=== PATIENT | female | born 1980 | race Caucasian/White ===

== ENCOUNTER 2020-12-17 09:22 | Emergency (ER) | payer BC, OTHER ==
[2020-12-17 10:00] LABS: Absolute Lymphocytes (CBC) 1.6 K/uL (0.7-4.9); Basophils % 0.7 % (0-1.3); Lymphocytes % 29.5 % (15.3-44.8); MPV 7.6 fL (7.6-11.3); RBC Red Blood Cell Count 4.27 M/uL (3.86-4.86)
[2020-12-17 10:04] LABS: Protime INR 0.97
[2020-12-17] MEDS ORDERED: NA CHLORIDE 0.9% 1,000 ML ONE ×2 (10:05→13:34)
--- NOTE | 2020-12-17 10:26 | RAD REPORT ---
EXAM DESCRIPTION: [place] Single View12/17/2020 10:14 am CLINICAL HISTORY: cough COMPARISON: none FINDINGS: Elevation left hemidiaphragm. The lungs appear clear of acute infiltrate. The heart is normal size
--- NOTE | 2020-12-17 10:31 | RAD REPORT ---
EXAM DESCRIPTION: CT - Chest For Pe Angio - 12/17/2020 10:03 am CLINICAL HISTORY: Chest pain COMPARISON: None. TECHNIQUE: Dynamically enhanced axial 3 mm thick images of the chest were obtained during administra tion of <100> mL Isovue 370 IV contrast. Coronal and oblique reconstruction images were generated and reviewed. Exam utilizes a protocol for optimal evaluation of pulmonary arterial tree. Maximum intensity projections 3D imaging was utilized All CT scans are performed using dose optimization technique as appropriate and may include automated exposure control or mA/KV adjustment according to patient size. FINDINGS: A pulmonary embolus is not seen. A thoracic aortic aneurysm is not noted. A pleural effusion is not seen. A pericardial effusion is not seen. Minimal ground-glass opacities right lower lobe and lingula. IMPRESSION: Negative for a pulmonary embolism. Minimal ground-glass opacities right lower lobe and lingula. This is nonspecific. Potentially this co uld indicate a minimal Covid pneumonia
[2020-12-17 10:37] LABS: ALT/SGPT 66 U/L (12-78); Albumin 3.6 g/dL (3.4-5.0); Alkaline Phosphatase 72 U/L (45-117); BUN Blood Urea Nitrogen 6 mg/dL (7-18); Bicarbonate 21 mmol/L (21-32); Bilirubin Direct < 0.1 mg/dL (0-0.2); Bilirubin Total 0.3 mg/dL (0.2-1.0); Ferritin 22.8 ng/mL (8-388); Glucose Level 133 mg/dL (74-106); Protein, Total 7.4 g/dL (6.4-8.2); Sodium Level 138 mmol/L (136-145); Troponin (Emerg Dept Use Only) < 0.02 ng/mL (0.0-0.045)
[2020-12-17 10:38] LABS: AST/SGOT 38 U/L (15-37); Potassium 3.9 mmol/L (3.5-5.1)
--- NOTE | 2020-12-17 11:58 | EDPHYS ---
Physician Documentation [facility] Name: Karina Donald Age: 40 yrs Sex: Female : 1980 Arrival Date: 12/17/2020 Time: 09:23 Bed 11 Private MD: ED Physician Gregory Reagan HPI: 12/17 09:39 This 40 yrs old Female presents to ER via Ambulatory with complaints of rn Shortness Of Breath, Dizziness. 09:39 The patient has shortness of breath at rest, with light activity. Onset: The rn symptoms/episode began/occurred 1 week(s) ago. Duration: The symptoms are continuous. The patient's shortness of breath is aggravated by exertion, light activity, is alleviated by nothing. Associated signs and symptoms: Pertinent positives: chest pain, non-productive cough, fever, Pertinent negatives: hemoptysis, loss of consciousness. Severity of symptoms: At their worst the symptoms were moderate in the emergency department the symptoms are unchanged. The patient has not experienced similar symptoms in the past. The patient has not recently seen a physician. Patient reports Covid positive this last week, cough and shortness of breath has worsened, worse this morning, + active smoker. Denies hemoptysis.. Historical: - Allergies: 09:34 No Known Allergies; ss - Home Meds: 09:34 None [Active]; ss - PMHx: 09:34 None; ss - PSHx: 09:34 None; ss - Immunization history:: Client reports receiving the 1st dose of the Covid vaccine. - Social history:: Smoking status: Patient reports the use of cigarette tobacco products, smokes one-half pack cigarettes per day. - Family history:: not pertinent. - Hospitalizations: : No recent hospitalization is reported. ROS: 09:39 Constitutional: Negative for fever, chills, and weight loss, Eyes: Negative for injury, rn pain, redness, and discharge, ENT: Negative for injury, pain, and discharge, Neck: Negative for injury, pain, and swelling, Cardiovascular: Negative for palpitations, and edema, Respiratory: Negative for wheezing Abdomen/GI: Negative for abdominal pain, and constipation, Back: Negative for injury and pain, MS/Extremity: Negative for injury and deformity, Skin: Negative for injury, rash, and discoloration, Neuro: Negative for headache, numbness, tingling, and seizure. 09:39 All other systems are negative. Exam: 09:39 Constitutional: This is a well developed, well nourished patient who is awake, alert, rn moderate tachypnea Head/Face: Normocephalic, atraumatic. Eyes: Pupils equal round and reactive to light, extra-ocular motions intact. Lids and lashes normal. Conjunctiva and sclera are non-icteric and not injected. Cornea within normal limits. Periorbital areas with no swelling, redness, or edema. ENT: Dry mucous membranes, no stridor Neck: Trachea midline, no masses palpated, and no cervical lymphadenopathy. Supple, full range of motion without nuchal rigidity, or vertebral point tenderness. No Meningismus. Cardiovascular: Tachycardic, regular. No pulse deficits Respiratory: Moderate tachypnea, no retractions Abdomen/GI: Soft, non-tender Skin: Warm, dry MS/ Extremity: Pulses equal, no cyanosis. Neuro: Awake and alert, GCS 15 11:52 ECG was reviewed by the Attending Physician. rn Vital Signs: 09:28 BP 119 / 94; Pulse 121; Resp 25; Temp 97.9(TE); Pulse Ox 100% on R/A; Height 5 ft. 6 ss in. (167.64 cm); Pain 0/10; 09:37 Pulse 108; Pulse Ox 100% on R/A; ss 11:40 BP 99 / 61; Pulse 94; Resp 22; Pulse Ox 97% on R/A; vg1 13:08 BP 110 / 76; Pulse 95; Resp 20; Pulse Ox 100% on R/A; vg1 15:00 BP 124 / 78; Pulse 90; Resp 20; Pulse Ox 98% on R/A; vg1 MDM: 10:49 Differential diagnosis: pneumonia, Pneumothorax pulmonary edema, Pulmonary Embolism rn reactive airway disease, Sepsis COVID-19 positive test (U07.1, COVID-19) with Acute Pneumonia (J12.89, Other viral pneumonia) (If respiratory failure or sepsis present, add as separate assessment). Data reviewed: vital signs, nurses notes, lab test result(s), EKG, radiologic studies, CT scan, plain films, and as a result, I will discharge patient. Data interpreted: monitor worker: rate is 108 beats/min, rhythm is regular, sinus tachycardia, with no ectopy, Interpretation: tachycardia, Pulse oximetry: on room air is 99 %. Interpretation: normal. Test interpretation: by ED physician or midlevel provider: ECG, plain radiologic studies, Chest x-ray negative for acute infiltrate or pneumothorax. Counseling: I had a detailed discussion with the patient and/or guardian regarding: the historical points, exam findings, and any diagnostic results supporting the discharge/admit diagnosis, lab results, radiology results, the need for outpatient follow up, to return to the emergency department if symptoms worsen or persist or if there are any questions or concerns that arise at home. Response to treatment: the patient's symptoms have mildly improved after treatment, and as a result, I will discharge patient. Special discussion: I discussed with the patient/guardian in detail that at this point there is no indication for admission to the hospital. It is understood, however, that if the symptoms persist or worsen the patient needs to return immediately for re-evaluation. ED course: Patient improved clinically, tachypnea has improved. CT negative for PE and shows mild Covid pneumonia. Patient offered Regeneron given high risk of decompensation and active smoking history. Patient accepts and wishes to get Regeneron infusion, orders placed.. 11:31 Patient medically screened. rn 11:58 Counseling: I had a detailed discussion with the patient and/or guardian regarding: rn smoking cessation. 12/17 09:38 Order name: BMP; Complete Time: 10:41 12/17 09:38 Order name: Blood Culture Adult (2) rn 12/17 09:38 Order name: C-Reactive Protein; Complete Time: 10:41 12/17 09:38 Order name: CBC with Diff; Complete Time: 10:36 12/17 09:38 Order name: D-Dimer; Complete Time: 10:36 12/17 09:38 Order name: Ferritin; Complete Time: 10:41 12/17 09:38 Order name: LFT's; Complete Time: 10:41 12/17 09:38 Order name: Lactate rn 12/17 09:38 Order name: PT-INR; Complete Time: 10:36 12/17 09:38 Order name: Procalcitonin; Complete Time: 10:41 12/17 09:38 Order name: Ptt, Activated; Complete Time: 10:36 12/17 09:38 Order name: Troponin (emerg Dept Use Only); Complete Time: 10:41 rn 12/17 09:38 Order name: CXR XRAY; Complete Time: 10:36 rn 12/17 10:07 Order name: CREATININE WHOLE BLOOD; Complete Time: 10:36 EDMS 12/17 09:38 Order name: EKG; Complete Time: 09:39 rn 12/17 09:38 Order name: Cardiac monitoring; Complete Time: 11:50 rn 12/17 09:38 Order name: Droplet/Contact Precautions; Complete Time: 11:35 rn 12/17 09:38 Order name: EKG - Nurse/Tech; Complete Time: 11:50 rn 12/17 09:38 Order name: IV Start; Complete Time: 09:47 rn 12/17 09:38 Order name: Labs collected and sent; Complete Time: 11:35 rn 12/17 09:38 Order name: O2 Per Protocol; Complete Time: 11:35 rn 12/17 09:38 Order name: O2 Sat Monitoring; Complete Time: 11:35 rn 12/17 09:39 Order name: CT Chest For PE Angio; Complete Time: 10:36 rn EC:52 Rate is 82 beats/min. Rhythm is regular. QRS [place] is Normal. VT interval is normal. QRS rn interval is normal. QT interval is normal. No Q waves. T waves are Normal. No ST changes noted. Clinical impression: NSR w/ Non-specific ST/T Changes. Interpreted by me. Reviewed by me. Administered Medications: 09:47 Drug: NS 0.9% 1000 ml Route: IV; Rate: 1000 ml; Site: left antecubital; ss 13:47 Follow up: IV Status: Completed infusion; IV Intake: 1000ml vg1 12:19 Drug: REGEN-COV Dose Pack 120 mg/mL-120 mg/mL (EUA) 600 mg Route: IV; Rate: calculated vg1 rate; Site: left antecubital; 13:21 Follow up: IV Status: Completed infusion; IV Intake: 100ml vg1 13:21 Drug: NS 0.9% 1000 ml Route: IV; Rate: 1 bolus; Site: left antecubital; vg1 15:10 Follow up: IV Status: Completed infusion; IV Intake: 1000ml vg1 Disposition Summary: 12/17/20 11:58 Discharge Ordered Location: Home rn Problem: new rn Symptoms: have improved rn Condition: Stable rn Diagnosis - Pneumonia due to SARS-associated coronavirus rn - Dehydration rn Followup: rn - With: Private Physician - When: As needed - Reason: Recheck today's complaints, Re-evaluation by your physician Discharge Instructions: - Discharge Summary Sheet rn - Dehydration, Adult rn - COVID-19 rn - COVID-19 Frequently Asked Questions rn Forms: - Medication Reconciliation Form rn - Thank You Letter rn - Antibiotic last turner - Prescription Opioid Use rn Signatures: Dispatcher [employer] EDGregory Edwards MD MD rn Smirch, Shelby, RN RN Jennifer Briscoe, RN RN vg1
--- NOTE | 2020-12-17 11:58 | ER ---
Nurse's Notes [facility] Name: Karina Donald Age: 40 yrs Sex: Female : 1980 Arrival Date: 12/17/2020 Time: 09:23 Bed 11 Private MD: Diagnosis: Pneumonia due to SARS-associated coronavirus;Dehydration Presentation: 12/17 09:28 Chief complaint: Patient states: Diagnosed with COVID recently. Symptoms began 10 days ss ago. Pt reports that her shortness of breath and cough are getting worse. Denies pain. Coronavirus screen: Client presents with at least one sign or symptom that may indicate coronavirus-19. Standard/surgical mask placed on the client. Provider contacted for isolation considerations. Ebola Screen: Patient denies exposure to infectious person. Patient denies travel to an Ebola-affected area in the 21 days before illness onset. Initial Sepsis Screen: Does the patient meet any 2 criteria? RR > 20 per min. HR > 90 bpm. Does the patient have a suspected source of infection? No. Patient's initial sepsis screen is negative. Risk Assessment: Do you want to hurt yourself or someone else? Patient reports no desire to harm self or others. Onset of symptoms was December 07, 2020. 09:28 Method Of Arrival: Ambulatory ss 09:28 Acuity: SPEEDY 2 ss Historical: - Allergies: 09:34 No Known Allergies; ss - Home Meds: 09:34 None [Active]; ss - PMHx: 09:34 None; ss - PSHx: 09:34 None; ss - Immunization history:: Client reports receiving the 1st dose of the Covid vaccine. - Social history:: Smoking status: Patient reports the use of cigarette tobacco products, smokes one-half pack cigarettes per day. - Family history:: not pertinent. - Hospitalizations: : No recent hospitalization is reported. Screenin:57 Abuse screen: Denies threats or abuse. Nutritional screening: No deficits noted. vg1 Tuberculosis screening: No symptoms or risk factors identified. Fall Risk No fall in past 12 months (0 pts). No secondary diagnosis (0 pts). IV access (20 points). Ambulatory Aid- None/Bed Rest/Nurse Assist (0 pts). Gait- Normal/Bed Rest/Wheelchair (0 pts) Mental Status- Oriented to own ability (0 pts). Total Armijo Fall Scale indicates No Risk (0-24 pts). Assessment: 09:48 Reassessment: Pt to XRAY and CT now VIA wheelchair [facility]. ss 11:50 General: Appears in no apparent distress. comfortable, Behavior is calm, cooperative. vg1 Pain: Denies pain. Neuro: Level of Consciousness is awake, alert, obeys commands, Oriented to person, place, time, situation. Cardiovascular: Patient's skin is warm and dry. Rhythm is sinus rhythm. Respiratory: Airway is patent Respiratory effort is even, unlabored. 11:50 Respiratory: Breath sounds are diminished. vg1 11:58 Reassessment: Pt up for d/c; currently waiting for administration of medication and vg1 completion. 13:08 Reassessment: Patient appears in no apparent distress at this time. No changes from vg1 previously documented assessment. Patient and/or family updated on plan of care and expected duration. Pain level reassessed. Patient is alert, oriented x 3, equal unlabored respirations, skin warm/dry/pink. Pt stated feeling 'dizziness that comes and goes'. Provider notified. 15:10 Reassessment: Patient appears in no apparent distress at this time. Patient and/or vg1 family updated on plan of care and expected duration. Pain level reassessed. Patient is alert, oriented x 3, equal unlabored respirations, skin warm/dry/pink. Patient states feeling better. Vital Signs: 09:28 BP 119 / 94; Pulse 121; Resp 25; Temp 97.9(TE); Pulse Ox 100% on R/A; Height 5 ft. 6 ss in. (167.64 cm); Pain 0/10; 09:37 Pulse 108; Pulse Ox 100% on R/A; ss 11:40 BP 99 / 61; Pulse 94; Resp 22; Pulse Ox 97% on R/A; vg1 13:08 BP 110 / 76; Pulse 95; Resp 20; Pulse Ox 100% on R/A; vg1 15:00 BP 124 / 78; Pulse 90; Resp 20; Pulse Ox 98% on R/A; vg1 ED Course: 09:23 Patient arrived in ED. ds1 09:34 Triage completed. ss 09:34 Gregory Reagan MD is Attending Physician. ss 09:34 Arm band placed on right wrist. ss 09:48 Inserted saline lock: 22 gauge in left antecubital area, using aseptic technique. Blood ss collected. Patient maintains SpO2 saturation greater than 95% on room air. 10:03 CT Chest For PE Angio In Process Unspecified. EDMS 10:14 CXR XRAY In Process Unspecified. EDMS 11:34 Jennifer Daniels, RN is Primary Nurse. vg1 11:58 Patient has correct armband on for positive identification. Bed in low position. Call vg1 light in reach. Side rails up X 1. 11:58 No provider procedures requiring assistance completed. vg1 15:12 IV discontinued, intact, bleeding controlled, No redness/swelling at site. Pressure vg1 dressing applied. Administered Medications: 09:47 Drug: NS 0.9% 1000 ml Route: IV; Rate: 1000 ml; Site: left antecubital; ss 13:47 Follow up: IV Status: Completed infusion; IV Intake: 1000ml vg1 12:19 Drug: REGEN-COV Dose Pack 120 mg/mL-120 mg/mL (EUA) 600 mg Route: IV; Rate: calculated vg1 rate; Site: left antecubital; 13:21 Follow up: IV Status: Completed infusion; IV Intake: 100ml vg1 13:21 Drug: NS 0.9% 1000 ml Route: IV; Rate: 1 bolus; Site: left antecubital; vg1 15:10 Follow up: IV Status: Completed infusion; IV Intake: 1000ml vg1 Intake: 13:21 IV: 100ml; Total: 100ml. vg1 13:47 IV: 1000ml; Total: 1100ml. vg1 15:10 IV: 1000ml; Total: 2100ml. vg1 Outcome: 11:58 Discharge ordered by . rn 15:11 Discharged to home ambulatory. vg1 15:11 Condition: stable 15:11 Discharge instructions given to patient, Instructed on discharge instructions, follow up and referral plans. Demonstrated understanding of instructions, follow-up care. 15:12 Patient left the ED. vg1 Signatures: Dispatcher [employer] [facility] Myrna Palomo ds1 Gregory Reagan MD MD rn Smirch, Shelby, RN RN ss Jennifer Daniels, FIDENCIO RN vg1
[2020-12-17] MEDS ORDERED: CASIRIVIMAB/IMDEVIMAB 10 ML VIAL ONE (12:11)
[2020-12-17] MEDS ORDERED: NA CHLORIDE 0.9% 100 ML ONE (12:11)
[2020-12-17 15:17] VITALS: TEMP 97.9
[2020-12-17 15:22] VITALS: BP 124/78; O2SAT 98
--- NOTE | 2020-12-18 15:40 | EKG ---
Test Date: 2020-12-17 Test Time: 11:42:44 Auto Body Customizer: GEOVANNA MEASUREMENT RESULTS: Intervals: Rate: 82 ND: 158 QRSD: 76 QT: 310 QTc: 362 [place]: P: 63 ND: 158 QRS: 45 T: 80 INTERPRETIVE STATEMENTS: Normal sinus rhythm Nonspecific T wave abnormality Abnormal ECG No previous ECG available for comparison Electronically Signed On 12-18-20 15:37:15 CDT by Santana Crandall
== END 2020-12-17 15:12 | disposition home or self-care (01) ==
LOC: ER 09:22
DX: U07.1 COVID-19 (principal); J12.82 Pneumonia due to coronavirus disease 2019; E86.0 Dehydration; F17.210 Nicotine dependence, cigarettes, uncomplicated
CPT/HCPCS: 96365; 96361; 93005; 87040 ×2; 85025; 80048; 36415; 85610; 82565; 85379; 80076; 83605; 85730; 84484; 82728; 84145; 86140; 71275; 71045; 99285; Q9967; J7030 ×2

== ENCOUNTER 2022-06-23 06:27 | Day surgery (SDC) | payer BC, SELFPAY ==
[2022-06-18 11:58] LABS: Specific Gravity 1.024 (1.005-1.030); Urine Bilirubin NEGATIVE (Negative); Urine Blood Negative (Negative); Urine Clarity Clear (Clear); Urine Color Yellow (Yellow); Urine Glucose TRACE (Negative); Urine Protein NEGATIVE (Negative); Urine Urobilinogen Normal (Normal)
[2022-06-18 12:02] LABS: Absolute Lymphocytes (CBC) 1.6 K/uL (0.7-4.9); Hematocrit 38.3 % (36.0-45.0); Lymphocytes % 24.6 % (15.3-44.8); MCV 87.9 fL (80-100); MPV 7.4 fL (7.6-11.3); RBC Red Blood Cell Count 4.35 M/uL (3.86-4.86)
[2022-06-23] MEDS ORDERED: SCOPOLAMINE HYDROBROMIDE PATCH TD ONE (06:54)
[2022-06-23] MEDS ORDERED: NA CHLORIDE 0.9% 1,000 ML ONE (06:54)
[2022-06-23] MEDS ORDERED: BUPIVACAINE 0.25% PF 10 ML VIAL ONE (06:56)
[2022-06-23] MEDS ORDERED: LIDOCAINE 2% MPF 5 ML VIAL ONE (06:58)
[2022-06-23] MEDS ORDERED: FENTANYL CITR 250 MCG/5 ML ONE (06:58)
[2022-06-23] MEDS ORDERED: dexAMETHasone 10 MG/ML VIAL ONE (06:58)
[2022-06-23] MEDS ORDERED: ROCURONIUM 50 MG/5 ML VIAL IV ONE (06:58)
[2022-06-23] MEDS ORDERED: MIDAZOLAM HCL 2 MG/2 ML INJ ONE (06:58)
[2022-06-23] MEDS ORDERED: propofoL 200 MG/20 ML VIAL IV ONE (06:58)
[2022-06-23] MEDS ORDERED: CEFAZOLIN 3 GM in NA CHLORIDE 0.9% 100 ML IVPB SCH (07:00)
[2022-06-23] MEDS ORDERED: ONDANSETRON 4 MG/2 ML VIAL ONE ×2 (07:03→09:36)
[2022-06-23 07:47] LABS: Urine Specific Gravity/Preg >1.030 (1.005-1.030)
[2022-06-23] MEDS ORDERED: MEPERIDINE HCL 25 MG/ML SYR IM PRN (07:47)
[2022-06-23] MEDS ORDERED: PROMETHAZINE INJ 25 MG/ML AMP IV PRN (07:47)
[2022-06-23] MEDS ORDERED: IBUPROFEN 200 MG TAB PO PRN (07:47)
[2022-06-23] MEDS ORDERED: HYDROCODONE/APAP 5/325 MG TAB PO PRN (07:47)
--- NOTE | 2022-06-23 07:58 | P.BOP ---
Preoperative diagnosis: Menorrhagia, Dysmenorrhea, DIANELYS, Left ovarian cyst Postoperative diagnosis: Menorrhagia, Dysmenorrhea, DIANELYS, PCO Primary procedure: Hysteroscopy Endometrial ablation, Laparoscopy bilat salpingectomy Secondary procedure: bilateral ovarian vp delivery: Karley Greenwood Estimated blood loss: min Specimen: bilateral tubes Findings: no endo, bilateral PCO, drilling done Anesthesia: General Complications: None Complications: L=5;W-4.6;P=127;T=1.42 Fluids & blood products: UO 100 LR 700 Transferred to: Recovery Room Condition: Good
[2022-06-23] MEDS ORDERED: KETOROLAC 30 MG/ML INJ ONE (08:58)
[2022-06-23] MEDS ORDERED: HOME MED 1 EA UNK (Fenofibrate,Micronized [Fenofibrate] 67 MG Capsule) PO SCH (09:00)
[2022-06-23] MEDS ORDERED: HOME MED 1 EA UNK (Pnv No.95/Ferrous Fum/Folic Ac [Prenatal Multivitamin Tablet] Tablet) PO SCH (09:00)
[2022-06-23] MEDS ORDERED: METFORMIN HCL 500 MG TAB PO SCH (09:00)
[2022-06-23] MEDS ORDERED: HOME MED 1 EA UNK (Iron [Iron] 18 MG Tablet) PO SCH (09:00)
[2022-06-23] MEDS ORDERED: VITAMIN D 400 UNIT TAB PO SCH (09:00)
[2022-06-23] MEDS ORDERED: MEPERIDINE HCL 25 MG/ML SYR ONE (09:33)
[2022-06-23] MEDS ORDERED: HYDROMORPHONE HCL 1 MG/ML INJ ONE (09:41)
[2022-06-23] MEDS ORDERED: PROMETHAZINE INJ 25 MG/ML AMP ONE (09:45)
[2022-06-23 09:55] VITALS: O2SAT 97
[2022-06-23 10:08] VITALS: BP 142/83; TEMP 97.7
[2022-06-23] MEDS ORDERED: HYDROCODONE/APAP 5/325 MG TAB ONE (10:24)
--- NOTE | 2022-06-23 13:41 | OP ---
Date of Procedure: 06/23/2022 Surgeon: Elisabet Mendoza MD Income Tax Analyst: Karley Levin. Preoperative Diagnoses: Menorrhagia, dysmenorrhea, iron deficiency anemia, left ovarian cyst. Postoperative Diagnoses: Menorrhagia, dysmenorrhea, iron deficiency anemia, and polycystic ovaries. Primary Procedures: 1.Hysteroscopy, endometrial ablation with NovaSure. 2.Laparoscopy with bilateral salpingectomy. 3.Bilateral ovarian drilling. Estimated Blood Loss: Minimal. Anesthesia: General endotracheal. Specimens: Bilateral tubes. Complications: No complications. Drains: No drains. Condition: Stable. Findings: No endometriosis seen, however, paratubal cysts noted on both sides, right more than the l eft. Bilateral polycystic ovaries. There were cysts about approximately 1 cm in size, at least 5 on the left side and a large corpus luteal cyst on the right side approximately 1.5 cm and then other s mall 1 cm or less than 1 cm simple ovarian cyst on the right ovary at least 4 of them. All these wer e drilled using monopolar current and at least 15 sites were drilled on both ovaries, 15 on each side . Ablation was performed without any problems. There was excellent ablation effect. The cavity length was 5 cm with 4.6, power 127 harris and time was 1 minute and 42 seconds. Fluids: 700. Urine Output: 100. Disposition: Transferred to the recovery room in stable condition. Indications: The patient is a 41-year-old female with significant bleeding and cramps. Evaluated he r with ultrasound and endometrial sampling. Endometrial curettage did not show any atypia or maligna ncy. Completed childbearing and so discussed about different treatment options including levonorgest rel IUD, an ablation, a hysterectomy, medical management. After understanding the benefits and risks of each procedure, the uterus appeared to be heterogeneous. There was a higher chance that this cou ld be adenomyosis. Understanding this and given her dysmenorrhea, we discussed all the options inclu ding laparoscopy with endometriosis, excision if found and so I advised her on bilateral salpingectom y for reduction of postablation tubal ligation syndrome risk. On the left side since the cyst was co mplex, although small 3.3 cm. CA-125 was done, was normal. No other risks for indicating cancer wer e present, but the patient wanted the left ovary removed if the cyst was found. After informed consent was verified, she was taken back to OR. Provera was given prior to her proced ure so as to help decrease the lining. Procedure In Detail: After informed consent was verified, she was taken back to OR. 3 g of Ancef we re given. SCDs were placed. A time-out was done, general anesthesia was given, and the patient was placed in a dorsal lithotomy position. Abdomen prepped with ChloraPrep. DICTATION ENDS HERE VILMA/VALDEZ Voice ID: [id number] Report ID: [id number]
== END 2022-06-23 11:00 | disposition home or self-care (01) ==
LOC: OR 06:27
PROVIDERS: ATTEND Obstetrics & Gynecology
PROC: 0UT74ZZ Resection of Bilateral Fallopian Tubes, Percutaneous Endoscopic Approach (ICD-10-PCS; 2022-06-23)
PROC: 0U524ZZ Destruction of Bilateral Ovaries, Percutaneous Endoscopic Approach (ICD-10-PCS; 2022-06-23)
PROC: 0U5B8ZZ Destruction of Endometrium, Via Natural or Artificial Opening Endoscopic (ICD-10-PCS; principal; 2022-06-23 07:30)
DX: N94.6 Dysmenorrhea, unspecified (principal); N92.1 Excessive and frequent menstruation with irregular cycle; N83.292 Other ovarian cyst, left side; D50.0 Iron deficiency anemia secondary to blood loss (chronic); I10 Essential (primary) hypertension; E78.5 Hyperlipidemia, unspecified; F41.9 Anxiety disorder, unspecified; D64.9 Anemia, unspecified
CPT/HCPCS: 85025; 36415; 86900; 86850; 81025; 86901; 82947 ×2; 88302; 81003; 58563; 58661; 58999; J2704; J2550; J2001; J2250; J3010; J2175; J1170; J7030; J2405 ×2; J0690; J1100